=== PATIENT | male | born 1990 | race Caucasian/White ===

== ENCOUNTER 2016-06-26 09:22 | Emergency (ER) | payer SELFPAY ==
[2016-06-26 10:13] LABS: HEMOGLOBIN 16.2 gm/dl (14.0-17.5); RED BLOOD COUNT 5.2 M/UL (4.20-5.50); WHITE BLOOD COUNT 8.8 K/UL (4.5-11.0)
[2016-06-26 10:40] LABS: BUN/CREATININE RATIO 14 (0-10)
== END 2016-06-26 11:32 | disposition home or self-care (01) ==
LOC: ER1 09:22
PROVIDERS: Physician Assistant
DX: N13.2 Hydronephrosis with renal and ureteral calculous obstruction (principal)
CPT/HCPCS: 36415; 71010; 80053; 81001; 82150; 82550; 82553; 83690; 83874; 84484; 85025; 93005; 96361; 96374; 96375; 99284; J1885; J2270; J2405; J7030